=== PATIENT | male | born 1995 | race Caucasian/White ===

== ENCOUNTER 2016-11-07 12:52 | Emergency (ER) | payer OTHER ==
[2016-11-07 13:01] VITALS: BP 136/60
--- NOTE | 2016-11-07 13:43 | ER Document Report ---
ED General - General Chief Complaint: Anxiety Stated Complaint: ANXIETY Notes: Patient is a 21-year-old male with past history of chronic daily anxiety and panic disorder who presents with increased panic attack frequency over the last 2 weeks. Patient notes that he has multiple new stressors in his life including a new housing location, a new job, and recently transitioned from duloxetine to citalopram for his chronic daily anxiety. He's also been trying 0.5 mg of clonazepam as needed with moderate improvement of his anxiety and decreased frequency of his panic attacks. However he notes that his symptom control is not to the level that he is okay with as he is continuing to miss work secondary to his anxiety. He denies any chest pain, shortness of breath, headache or neck pain. He has a follow-up appointment with his primary mental health provider on Wednesday next week. TRAVEL OUTSIDE OF THE [place] IN LAST 30 DAYS: No - Related Data Allergies/Adverse Reactions: No Known Allergies Allergy (Verified 11/07/16 13:27) Past Medical History - General Information source: Patient - Social History Smoking Status: Current Every Day Smoker Frequency of alcohol use: Rare Drug Abuse: None Lives with: Friend Family History: Reviewed & Not Pertinent Patient has suicidal ideation: No Patient has homicidal ideation: No Renal/ Medical History: Denies: Hx Peritoneal Dialysis Review of Systems - Review of Systems Notes: Constitutional: Negative for fever. HENT: Negative for sore throat. Eyes: Negative for visual changes. Cardiovascular: Negative for chest pain. Respiratory: Negative for shortness of breath. Gastrointestinal: Negative for abdominal pain, vomiting or diarrhea. Genitourinary: Negative for dysuria. Musculoskeletal: Negative for back pain. Skin: Negative for rash. Neurological: Negative for headaches, weakness or numbness. 10 point ROS negative except as marked above and in HPI. Physical Exam - Vital signs Vitals: Temp Pulse Resp BP Pulse Ox 98.2 F 78 18 136/60 H 96 11/07/16 13:01 11/07/16 13:01 11/07/16 13:01 11/07/16 13:01 11/07/16 13:01 Interpretation: Normal Notes: PHYSICAL EXAMINATION: GENERAL: Well-appearing, well-nourished and in no acute distress. HEAD: Atraumatic, normocephalic. EYES: sclera anicteric, conjunctiva are normal. ENT: Moist mucous membranes. NECK: Normal range of motion LUNGS: Normal work of breathing HEART: 2+ radial pulses bilaterally EXTREMITIES: no pitting or edema. No cyanosis. NEUROLOGICAL: No focal neurological deficits. Moves all extremities spontaneously and on command. PSYCH: Normal mood, normal affect. Appears mildly anxious but in no distress SKIN: Warm, Dry, normal turgor, no rashes or lesions noted. Course - Re-evaluation Re-evalutation: 11/07/16 13:39 Patient presents with history most consistent with an acute panic attack resolved at time of initial evaluation. The patient admits that these are symptoms identical to prior occasions of panic. There was a clear trigger for tonight's episode. Will increase his clonazepam to 1 mg twice daily as needed. Vitals otherwise within normal limits. I do not suspect an acute pulmonary embolus, ACS, pneumothorax, or any other acute left threatening pathology based on history and exam. I do not believe any labs or imaging are indicated at this time. At this time will discharge with return precautions and follow-up recommendations. Verbal discharge instructions given a the bedside and opportunity for questions given. Medication warnings reviewed. Patient is in agreement with this plan and has verbalized understanding of return precautions and the need for primary care follow-up in the next 24-72 hours. - Vital Signs Vital signs: Temp Pulse Resp BP Pulse Ox 98.2 F 78 18 136/60 H 96 11/07/16 13:01 11/07/16 13:01 11/07/16 13:01 11/07/16 13:01 11/07/16 13:01 Discharge - Discharge Clinical Impression: Panic attacks Condition: Good Disposition: HOME, SELF-CARE Instructions: Anxiety ([facility]) Additional Instructions: You were seen today for symptoms that are most suggestive of a panic attack. In the meantime, please increase her clonazepam to 1 mg twice daily as needed for anxiety. The symptoms can come on without any clear trigger. It is important that you follow-up with your primary care physician regarding anxiety and panic attacks as there are medications that can help prevent these attacks or stop them once they start. Please return to the emergency department immediately if you began having chest pain, shortness of breath, vomiting, difficulty breathing, or if you are again having a panic attack. Please also return if you have any additional symptoms that are concerning to you. Prescriptions: Clonazepam [Klonopin 1 mg Tablet] 1 mg PO BID PRN #10 tablet PRN Reason: Forms: Return to Work
== END 2016-11-07 13:46 | disposition home or self-care (01) ==
LOC: ER 12:52
DX: F41.0 Panic disorder [episodic paroxysmal anxiety] (principal); F41.9 Anxiety disorder, unspecified; Z79.899 Other long term (current) drug therapy; F17.200 Nicotine dependence, unspecified, uncomplicated
CPT/HCPCS: 99283